=== PATIENT | female | born 1990 | race Two or more races ===

== ENCOUNTER 2017-02-17 12:57 | Emergency (ER) | payer OTHER ==
[~2017-02-17] VITALS: Ht 160 cm; Wt 61.2 kg
--- NOTE | 2017-02-17 13:07 | NUR ---
bbra and lapd from home: per report, pt attempted suicide by drinking nail mohawk due to hearing voices. unknown amount. 5mg versed given in field. placed on monitor awaiting md order
--- NOTE | 2017-02-17 13:11 | NUR ---
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
[2017-02-17] MEDS ORDERED: IV NS 0.9% 1,000 ML BAG IV ONE (13:30)
--- NOTE | 2017-02-17 13:30 | NUR ---
allan motley at bedside for eval
--- NOTE | 2017-02-17 13:30 | NUR ---
UNABLE TO START IV JOSHUA PRATER AWARE.
[2017-02-17] MEDS ORDERED: TETRACAINE HCL/PF 0.5% UD 2 ML BOTTLE ONE (13:40)
[2017-02-17] MEDS ORDERED: FLUORESCEIN SODIUM OPHTH 1 EA STRIP ONE (13:40)
[2017-02-17] MEDS ORDERED: FLUORESCEIN SODIUM OPHTH 1 EA STRIP OP ONE (14:00)
[2017-02-17] MEDS ORDERED: TONO PEN in ED SUPPLY ONICELL 1 EA MC ONE (14:00)
[2017-02-17] MEDS ORDERED: TETRACAINE HCL/PF 0.5% UD 2 ML BOTTLE LEFTEYE ONE (14:00)
--- NOTE | 2017-02-17 14:00 | NUR ---
PT UNABLE TO PROVIDE URINE JOSHUA PRATER AWARE
[2017-02-17 14:05] LABS: BASOPHILS # (AUTO) 0.1 /CMM (0.0-0.2); BASOPHILS % (AUTO) 0.7 % (0.0-2.0); EOSINOPHILS # (AUTO) 0.1 /CMM (0.0-0.7); EOSINOPHILS % (AUTO) 0.7 % (0.0-6.0); HEMATOCRIT 35 % (33-45); HEMOGLOBIN 11.8 g/dL (11.5-14.8); LYMPHOCYTES # (AUTO) 1.6 /CMM (0.8-4.8); LYMPHOCYTES % (AUTO) 17.3 % (20.0-44.0); MEAN CORPUSCULAR HEMOGLOBIN 27 PG (26.0-33.0); MEAN CORPUSCULAR HGB CONC 33 g/dl (31.0-36.0); MEAN CORPUSCULAR VOLUME 81 fL (82-100); MONOCYTES # (AUTO) 0.5 /CMM (0.1-1.30); MONOCYTES % (AUTO) 5.1 % (2.0-12.0); NEUTROPHILS # (AUTO) 7.3 /CMM (1.8-8.9); NEUTROPHILS % (AUTO) 76.2 % (43.0-81.0); PLATELET COUNT (AUTO) 298 /CMM (150-450); RDW COEFFICIENT OF VARIATION 15.1 (11.5-15.0); WHITE BLOOD COUNT (AUTO) 9.5 K/uL (4.3-11.0)
[2017-02-17 14:15] LABS: CALCIUM, SERUM 8.8 mg/dL (8.5-10.1); CARBON DIOXIDE 26 mmol/L (21-32); CHLORIDE 106 mmol/L (98-107); CREATININE 0.8 mg/dL (0.6-1.3); GLUCOSE 99 mg/dL (74-106); POTASSIUM 3.8 mmol/L (3.5-5.1); SODIUM SERUM 140 mmol/L (136-145); UREA NITROGEN, BLOOD 14 mg/dL (7-18)
[2017-02-17 14:40] LABS: ACETAMINOPHEN < 2 ug/ml (10-30); ALANINE AMINOTRANSFERASE 29 U/L (12-78); ALCOHOL, BLOOD < 3 mg/dL (0-0); ALKALINE PHOSPHATASE 57 U/L (46-116); ASPARTATE AMINOTRANSFERASE 29 U/L (15-37); BILIRUBIN,DIRECT 0.1 mg/dL (0.0-0.2); BILIRUBIN,TOTAL 0.4 mg/dL (0.2-1.0); TOTAL PROTEIN, SERUM 7.7 g/dL (6.4-8.2)
--- NOTE | 2017-02-17 15:00 | NUR ---
Note randy in EDM - 02/17/17 at 1547 by IZZY Patient does not wish to proceed with medical care recommended by Dr. JOSHUA HU BOTTLER . Patient given information related to possible complications, up to and including , which could occur as a result of leaving the hospital at this time. Patient verbalizes understanding of risks involved due to leaving against medical advice. Patient has signed AMA form.
--- NOTE | 2017-02-17 15:07 | NUR ---
CALLED DR. PINEDA'S OFFICE, WHICH NOTIFIED ME TO REACH THE "MEDICAID SPECIALIST DR" AT . CALLED AND WAS DIRECTED TO CALL THE ANSWERING SERVICE AT [phone]. I THEN CALLED AND I WAS NOTIFIED BY THE ANSWERING SERVICE THAT THEY DO NOT TAKE EMERGENCY CALLS OR ASSIST ANY ER WITH PHONE CONSULTATIONS OR VISITS.
[2017-02-17] MEDS ORDERED: OFLOXACIN 0.3% OPHTH 5 ML BOTTLE LEFTEYE SCH (15:30)
[2017-02-17 15:46] VITALS: BP 110/78
--- NOTE | 2017-02-17 15:47 | NUR ---
Patient discharged to home in stable condition. Written and verbal after care instructions given. Patient verbalizes understanding of instruction.
[2017-02-17] MEDS ORDERED: CIPROFLOXACIN HCL 0.3% 5 ML BOTTLE LEFTEYE SCH (16:00)
== END 2017-02-17 16:26 | disposition home or self-care (01) ==
LOC: ER 12:58
DX: S05.02XA Injury of conjunctiva and corneal abrasion without foreign body, left eye, initial encounter (principal); F20.9 Schizophrenia, unspecified; X58.XXXA Exposure to other specified factors, initial encounter; Y92.89 Other specified places as the place of occurrence of the external cause; Y93.89 Activity, other specified; Y99.8 Other external cause status
CPT/HCPCS: 36415; 80048-TC; 80076-TC; 85025-TC; A4606; G0480; J7030; Z7610